=== PATIENT | female | born 1960 | race Asian ===

== ENCOUNTER 2019-01-16 22:29 | Emergency (ER) | payer BC ==
[~2019-01-16] VITALS: Ht 160 cm; Wt 60.3 kg
[2019-01-16 22:43] VITALS: Ht 160 cm; Wt 60.3 kg
[2019-01-17 00:17] LABS: BASOPHIL % 0.5 % (0-2); PLATELET COUNT 232 x10^3mcL (130-400); RED CELL DISTRIBUTION WIDTH 15.8 % (11.5-14.5)
[2019-01-17 00:33] LABS: CALCIUM 9.3 mg/dL (8.5-10.1); CARBON DIOXIDE 28.4 mmol/L (21-32); CHLORIDE SERUM 108 mmol/L (98-107); CREATININE SERUM 0.7 mg/dL (0.6-1.0); GFR1 > 60 mL/min; GLUCOSE SERUM 107 mg/dL (74-106); SODIUM SERUM 143 mmol/L (136-145)
[2019-01-17 00:38] LABS: ALBUMIN 3.7 g/dL (3.4-5.0); ALKALINE PHOSPHATASE 51 U/L (46-116); ALT/SGPT 15 U/L (14-59); AST/SGOT 13 U/L (15-37); BILIRUBIN TOTAL 0.32 mg/dL (0.20-1.00); LIPASE 205 IU/L (73-393); TOTAL PROTEIN, SERUM 6.9 g/dL (6.4-8.2)
[2019-01-17 02:46] VITALS: BP 115/67
== END 2019-01-17 02:46 | disposition home or self-care (01) ==
LOC: ED 22:29
PROVIDERS: Emergency Medicine
DX: R05 Cough (principal); I10 Essential (primary) hypertension; Z90.89 Acquired absence of other organs; Z88.2 Allergy status to sulfonamides; Z88.1 Allergy status to other antibiotic agents
CPT/HCPCS: 36415; J7512; Q0092